=== PATIENT | female | born 1965 | race Caucasian/White ===

== ENCOUNTER 2017-06-17 12:26 | Emergency (ER) | payer BC ==
[~2017-06-17] VITALS: Ht 157.5 cm; Wt 65.8 kg
[2017-06-17] MEDS ORDERED: LEVOTHYROXINE 100 MCG TABLET PO (12:45)
[2017-06-17] MEDS ORDERED: AZITHROMYCIN 250 MG TABLET PO ONE (14:15)
[2017-06-17] MEDS ORDERED: predniSONE 20 MG TABLET PO ONE (14:15)
--- NOTE | 2017-06-17 14:18 | NUR ---
Patient discharged to home in stable conditon. Written and verbal after care instructions given. Patient verbalizes understanding of instructions.
[2017-06-17 14:19] VITALS: BP 115/82
[2017-06-17] MEDS ORDERED: predniSONE 20 MG TABLET ONE (14:23)
[2017-06-17] MEDS ORDERED: AZITHROMYCIN 250 MG TABLET ONE (14:23)
== END 2017-06-17 14:19 | disposition home or self-care (01) ==
LOC: ER 12:26
DX: J20.9 Acute bronchitis, unspecified (principal); E03.9 Hypothyroidism, unspecified
CPT/HCPCS: 71010; 87400; 99285; A4663; J7512; Q0144